=== PATIENT | female | born 1975 | race Caucasian/White ===

== ENCOUNTER 2016-12-01 05:20 | Day surgery (SDC) | payer OTHER ==
[2016-11-30 11:59] VITALS: BMI 33.4
[~2016-12-01] VITALS: Ht 149.9 cm; Wt 72.8 kg
[2016-12-01] VITALS (7 sets, daily range): BP systolic 105–121; BP diastolic 55–70; PULSE 72–86; RESP 11–19; Ht 149.9 cm; Wt 72.8 kg
[2016-12-01] MEDS ORDERED: LACTATED RINGER'S 1,000 ML IV SCH (05:30)
[2016-12-01] MEDS ORDERED: DICLOFENAC 0.1% 2.5 ML OPH OPER SCH (05:30)
[2016-12-01] MEDS ORDERED: LIDOCAINE 3.5% GEL TUBE OPER ONE (05:30)
[2016-12-01] MEDS ORDERED: CYCLOPENTOLATE 1% 2 ML OPH OPER SCH (05:30)
[2016-12-01] MEDS ORDERED: MOXIFLOXACIN 0.5% 3 ML OPH OPER SCH (05:30)
[2016-12-01] MEDS ORDERED: TETRACAINE 0.5% 15 ML OPH BOTH EYES ONE (05:30)
[2016-12-01] MEDS ORDERED: PHENYLephrine 10% 5 ML OPH ONE (06:46)
[2016-12-01] MEDS ORDERED: TOBRAMYCIN/DEXAMETH 3.5 GM OPH OINT ONE (06:46)
[2016-12-01] MEDS ORDERED: BALANCED SALT SOLN 15 ML OPH IRRIG ONE (07:00)
[2016-12-01] MEDS ORDERED: LIDOCAINE 2%/EPI 30 ML INJ ONE (07:25)
[2016-12-01] MEDS ORDERED: MIDAZOLAM 1 MG/ML 2 ML INJ ONE (07:31)
[2016-12-01] MEDS ORDERED: CEFAZOLIN 1 GM INJ ONE (07:32)
[2016-12-01] MEDS ORDERED: PROPOFOL 20 ML ONE (07:32)
[2016-12-01] MEDS ORDERED: LIDOCAINE 2% (SDV) 5 ML INJ ONE (07:32)
--- NOTE | 2016-12-01 07:46 | HPN ---
Date/Time of Note Date/Time of Note DATE: 12/01/16 TIME: 07:45 Interval H&P Admission Note Pt. seen H&P reviewed: No system changes FABIENNE RODRIGUEZ D.O. Dec 01, 2016 07:45
[2016-12-01] MEDS ORDERED: LIDOCAINE 2%/EPI (MDV) 20ML INJ INJ ONE (07:55)
[2016-12-01] MEDS ORDERED: FENTAnyl 50 MCG/ML VIAL ONE (07:58)
[2016-12-01] MEDS ORDERED: PHENYLephrine 10% 5 ML OPH LEFT EYE ONE (08:02)
[2016-12-01] MEDS ORDERED: TOBRAMYCIN/DEXAMETH 3.5 GM OPH OINT LEFT EYE ONE (08:13)
[2016-12-01] MEDS ORDERED: PROCHLORPERAZINE 10 MG INJ IV PRN (08:30)
[2016-12-01] MEDS ORDERED: DIPHENHYDRAMINE 50 MG INJ IV PRN (08:30)
[2016-12-01] MEDS ORDERED: FENTAnyl 50 MCG/ML VIAL IV PRN (08:30)
[2016-12-01] MEDS ORDERED: OXYCODONE/ACETAMINOPHEN (5/325) TAB PO PRN (08:30)
[2016-12-01] MEDS ORDERED: MEPERIDINE 25 MG INJ IV PRN (08:30)
[2016-12-01] MEDS ORDERED: ONDANSETRON 4 MG INJ IV PRN (08:30)
[2016-12-01] MEDS ORDERED: HYDROmorphONE (0.2 MG/ML) 10ML SYG IV PRN (08:30)
--- NOTE | 2016-12-02 14:40 | OPR ---
DATE OF OPERATION: SURGEON: Fabienne Iyer DO ANESTHESIOLOGIST: [place] Isaacs MD PREOPERATIVE DIAGNOSIS: Peripheral progressive pterygium, left eye. POSTOPERATIVE DIAGNOSIS: Peripheral progressive pterygium, left eye. PROCEDURE PLANNED: Removal of pterygium with sliding autograft, left eye. PROCEDURE PERFORMED: Removal of pterygium with sliding autograft, left eye. CONSENT: The patient was explained all possible outcomes of surgery which included, but not limited to, infection, scar formation, recurrence, loss of vision, or loss of the eye as an organ. The patient understood and signed consent, can be found in her chart. DESCRIPTION OF PROCEDURE: The patient was brought to the operating room in stable condition and placed on the operating table in supine position. The left eye was prepped for pterygium surgery in routine sterile technique. Then 4 % lidocaine with epinephrine was injected into the nasal conjunctiva. Manual handpiece cautery used to demarcate body and tail of the pterygium. It was followed by separation of pterygium body from underlying sclerae with Brayan scissors. The head of pterygium was removed from cornea with [place] knife and scraped thorough. It was followed by polishing of cornea surface with elvin bur. Eventually autograft was created in the superior and inferior conjunctiva area and placed over bare sclera and attached to each other with 8-0 Vicryl suture. TobraDex ointment was instilled in the conjunctival sac and patch was placed over closed eyelid. The patient was transferred to recovery room in stable condition. Dictated By: FABIENNE MONTALVO/NTS Conf#: [id number] DID#: [id number] MTDD
== END 2016-12-01 10:10 | disposition home or self-care (01) ==
LOC: SDS 05:20
PROVIDERS: ATTEND Ophthalmology
DX: H11.052 Peripheral pterygium, progressive, left eye (principal)
CPT/HCPCS: 65426; 84703; J0690; J2250; J3010; J7120; Z7512; Z7610